=== PATIENT | female | born 1960 | race Caucasian/White ===

== ENCOUNTER 2020-06-09 08:34 | Outpatient (CLI) | payer OTHER, SELFPAY ==
--- NOTE | 2020-06-09 15:46 | WPDPFTINT ---
PFT Interpretation PFT Interpretation: DOS: 06/09/2020 REQUESTING: Yolette Knight NP REASON FOR TESTING: COPD PULMONARY FUNCTION TESTS Results are reproducible and reliable. Spirometry: FEV1 101%, FVC 98%, FEV1% 75%, all values are normal. No change with bronchodilator. Lung volumes: TLC 107%, normal. RV 119%, upper limit of normal. RV/TLC increased consistent with air trapping. Increased airway resistance. Diffusion: DLCO 88% normal. Flow volume loop: Normal. IMPRESSION: Normal spirometry, mild air trapping and increased airway resistance consistent with an obstructive process, no response to bronchodilator. Compared to a prior study 04/13/2017, she had a severely increased TLC consistent with hyperinflation and severe air trapping, now better. Otherwise the findings were similar. Chari Lara MD
== END 2020-06-09 08:35 | disposition home or self-care (01) ==
PROVIDERS: PCP Nurse Practitioner Family; Visit Provider Nurse Practitioner Family
DX: J44.9 Chronic obstructive pulmonary disease, unspecified (principal)
CPT/HCPCS: 94060; 94726; 94729

== ENCOUNTER 2020-08-07 11:16 | Outpatient (CLI) | payer OTHER, SELFPAY ==
--- NOTE | ~2020-08-07 | XR_ITS ---
EXAMINATION: XR chest 2V DATE: 08/07/2020 11:42 INDICATION: Chronic obstructive pulmonary disease. Right arm pain. TECHNIQUE: Frontal and lateral views of the chest were obtained. COMPARISON: None. FINDINGS: The chest demonstrates clear lungs without pneumonia, pleural effusion, or pneumothorax. Th e heart size is normal. Surgical clips in the right upper quadrant are likely from cholecystectomy. IMPRESSION: 1. No acute cardiopulmonary disease. Reviewed, dictated and finalized at location A.
== END 2020-08-07 11:17 | disposition home or self-care (01) ==
PROVIDERS: PCP Nurse Practitioner Family; Visit Provider Nurse Practitioner Family
DX: J44.9 Chronic obstructive pulmonary disease, unspecified (principal)
CPT/HCPCS: 71046

== ENCOUNTER 2020-10-25 08:21 | Outpatient (CLI) | payer OTHER, SELFPAY ==
--- NOTE | 2020-10-25 | ECHO_ITS ---
Patient Info Name: Brenda Brower Age: 60 years : 1960 Gender: Female Ht: 60 in Wt: 138 lbs BSA: 1.65 m2 HR: 75 bpm BP: 138 / 81 mmHg Heart Rhythm: Sinus Rhythm Technical Quality: Good Exam Date: 10/25/2020 8:57 AM Exam Location: [facility] Patient Status: Outpatient Admit Date: 10/25/2020 Staff Ordering Physician: JULIANNE CONRAD MD Brush Trimming Machine Setter: Leonel Babb RDCS Attending Provider: JULIANNE CONRAD MD Referring Physician: ANAMARIA MORALES; Exam Type: CA echo doppler color flow Study Info Indications I27.2 - Other secondary pulmonary hypertension Complete two-dimensional, color flow and Doppler transthoracic echocardiogram is performed. Strain analysis performed. History/Risk Factors COPD, HTN, pulmonary hypertension. Summary 1. Complete two-dimensional, color flow and Doppler transthoracic echocardiogram is performed. 2. Strain analysis performed. 3. Global longitudinal strain is borderline at -17 %. 4. Left ventricular chamber dimension is normal. 5. Left ventricular systolic function is normal, estimated at 65-70%. 6. There is no increased left ventricular wall thickness. 7. Left ventricular septal wall motion is normal. 8. The left ventricular diastolic function is grade I diastolic dysfunction. 9. Left atrial chamber dimension is mildly enlarged. 10. There is mild mitral valve regurgitation. 11. There is mild tricuspid valve regurgitation. Left Ventricle Global longitudinal strain is borderline at -17 %. Left ventricular chamber dimension is normal. Left ventricular systolic function is normal, estimated at 65-70%. There is no increased left ventricular wall thickness. Left ventricular septal wall motion is normal. The left ventricular diastolic function is grade I diastolic dysfunction. Right Ventricle Right ventricular chamber dimension is normal. Right ventricular systolic function is normal. Left Atria Left atrial chamber dimension is mildly enlarged. Right Atria Right atrial chamber dimension is normal. Atrial Septum Intact interatrial septum visualized by color flow imaging. Aortic Valve The aortic valve is trileaflet. There is mild aortic valve sclerosis. There is no aortic valve stenosis. There is trace aortic valve regurgitation. Pulmonic Valve The pulmonic valve is normal. There is no pulmonic valve stenosis. There is trace pulmonic regurgitation. Mitral Valve The mitral valve has normal leaflets. There is no mitral valve stenosis. There is mild mitral valve regurgitation. Tricuspid Valve The tricuspid valve leaflets are normal. There is no significant tricuspid valve stenosis. There is mild tricuspid valve regurgitation. No pulmonary hypertension, estimated pulmonary arterial systolic pressure is 31 mmHg. Pericardium/Pleural The pericardium appears normal. There is no pericardial effusion. Inferior Vena Cava Normal inferior vena cava with >50% collapse upon inspiration consistent with normal right atrial pressure, 5 mmHg. Aorta The aortic root size at the sinus of Valsalva is normal. The prox ascending aorta size is normal. Left Ventricular Outflow Tract Name Value Normal LVOT 2D LVOT Diameter
== END 2020-10-25 08:22 | disposition home or self-care (01) ==
PROVIDERS: PCP Nurse Practitioner Family
DX: I27.20 Pulmonary hypertension, unspecified (principal)
CPT/HCPCS: 93306

== ENCOUNTER 2020-11-04 06:39 | Outpatient (CLI) | payer OTHER, SELFPAY ==
--- NOTE | ~2020-11-04 | MR_ITS ---
EXAMINATION: MR shoulder RT wo con DATE: 11/04/2020 07:43 INDICATION: Tendinitis of right shoulder. TECHNIQUE: Magnetic resonance imaging (MRI) of the right shoulder was performed without intravenous c ontrast. Sequences included axial PD-weighted FS FSE, coronal oblique PD-weighted FS FSE and T2-weigh gabriela FS FSE, and sagittal oblique T2-weighted FS FSE and T1-weighted FSE. COMPARISON: Right shoulder MRI 02/18/2007 FINDINGS: Coracoacromial arch: The acromion undersurface is flat in morphology (type I). There are changes of distal clavicle resect ion. There is mild subacromial/subdeltoid bursitis. Rotator cuff: There is a bursal-sided partial-thickness tear of supraspinatus and anterior infraspinatus tendons me asuring 1.9 cm anterior to posterior by 5 mm proximal to distal by up to 70% tendon thickness. Teres minor tendon is normal. There is severe subscapularis tendinopathy. There is no asymmetric fatty atro phy of the rotator cuff muscle bellies. Biceps tendon and glenoid labrum: Biceps tendon is in bicipital groove. There is severe biceps tendinopathy with longitudinal split tea r. There is a tear of superior labrum from 10:00 to 12:00 (SLAP tear). Fluid: There is no glenohumeral joint effusion. Bones/cartilage: There is cartilage surface irregularity of glenoid. There are tiny osteophytes at the glenohumeral mindi int. IMPRESSION: 1. Severe rotator cuff tendinopathy with bursal-sided partial-thickness tear of supraspinatus and inf raspinatus tendons. 2. Mild glenoid chondrosis. SLAP tear. 3. Severe intra-articular biceps tendinopathy with longitudinal split tear. 4. Mild subacromial/subdeltoid bursitis. Reviewed, dictated and finalized at location A. [employer] PROFESSIONAL SERVICES CONSULTANT IMPRESSION: 1. Severe rotator cuff tendinopathy with bursal-sided partial-thickness tear of supraspinatus and infraspinatus tendons. 2. Mild glenoid chondrosis. SLAP tear. 3. Severe intra-articular biceps tendinopathy with longitudinal split tear. 4. Mild subacromial/subdeltoid bursitis.
== END 2020-11-04 06:40 | disposition home or self-care (01) ==
PROVIDERS: PCP Nurse Practitioner Family; Visit Provider Physician Assistant Surgical
DX: M75.41 Impingement syndrome of right shoulder (principal); M75.51 Bursitis of right shoulder; S43.431A Superior glenoid labrum lesion of right shoulder, initial encounter; X58.XXXA Exposure to other specified factors, initial encounter
CPT/HCPCS: 73221

== ENCOUNTER 2020-12-02 14:06 | Outpatient (CLI) | payer OTHER, SELFPAY ==
--- NOTE | ~2020-12-02 | XR_ITS ---
EXAMINATION: XR chest 2V 12/02/2020 14:20 INDICATION: Rib pain and pleurodynia PROCEDURE: PA and lateral views of the chest COMPARISON: 08/07/2020 FINDINGS: The lungs are clear. The cardiomediastinal silhouette is within normal limits. There are no pleural effusions. There is no pneumothorax suspected. Prominent bilateral nipple shadows. IMPRESSION: 1: NO ACUTE CARDIOPULMONARY DISEASE. Reviewed, dictated and finalized at location B. OR BUSINESS MANAGER
== END 2020-12-02 14:07 | disposition home or self-care (01) ==
PROVIDERS: PCP Nurse Practitioner Family; Visit Provider Nurse Practitioner Family
DX: R07.1 Chest pain on breathing (principal)
CPT/HCPCS: 71046

== ENCOUNTER 2021-04-20 16:11 | Outpatient (CLI) | payer OTHER, SELFPAY ==
--- NOTE | ~2021-04-20 | XR_ITS ---
EXAMINATION: XR foot RT min 3V DATE: 04/20/2021 16:29 INDICATION: Dorsal right foot pain post injury one half and 2 weeks prior. TECHNIQUE: Dorsoplantar, two oblique and lateral views of the right foot were obtained. COMPARISON: None. FINDINGS: Subtle sclerosis is seen along a likely subacute nondisplaced fracture across the neck of the right f ourth metatarsal. Bone alignment remains essentially anatomic. No other fractures identified. Mild po lyarticular osteoarthritis at the first metatarsophalangeal and several tarsal metatarsal and interph alangeal joints. Small Achilles and plantar calcaneal spurs. Mild soft tissue swelling at the dorsum of the forefoot. IMPRESSION: 1. Nondisplaced likely subacute fracture at the distal neck of the right fourth metatarsal. Reviewed, dictated and finalized at location A.
== END 2021-04-20 16:12 | disposition home or self-care (01) ==
LOC: ANHIMG 16:15
PROVIDERS: PCP Nurse Practitioner Family; Visit Provider Nurse Practitioner Family
DX: M79.671 Pain in right foot (principal); S92.344A Nondisplaced fracture of fourth metatarsal bone, right foot, initial encounter for closed fracture
CPT/HCPCS: 73630

== ENCOUNTER 2021-04-30 10:39 | Outpatient (CLI) | payer OTHER, SELFPAY ==
--- NOTE | ~2021-04-30 | MM_ITS ---
EXAMINATION: MM screening pati BI w gilda HISTORY: Screening mammogram, family history of breast cancer in her mother. TECHNIQUE: Craniocaudal and mediolateral oblique 3-D tomosynthesis images were obtained and synthetic 2-D images were generated. CAD analysis was submitted and interpreted. COMPARISON: No prior mammogram is available for comparison at this institution. BREAST PARENCHYMAL COMPOSITION: There are scattered areas of fibroglandular density. FINDINGS: Scattered benign-appearing calcifications are present. There is no evidence of suspicious m ass, calcification, or architectural distortion to suggest malignancy in either breast. IMPRESSION: 1. No mammographic evidence of malignancy. 2. Recommend routine screening mammography in one year. BI-RADS Category 2: Benign finding(s). Reviewed, dictated and finalized at location A.
== END 2021-04-30 10:40 | disposition home or self-care (01) ==
LOC: ANHIMG 10:40
PROVIDERS: PCP Nurse Practitioner Family; Visit Provider Nurse Practitioner Family
DX: Z12.31 Encounter for screening mammogram for malignant neoplasm of breast (principal)
CPT/HCPCS: 77063; 77067

== ENCOUNTER 2021-05-09 15:49 | Emergency (ER) | payer OTHER, SELFPAY ==
[2021-05-09] VITALS (26 sets, daily range): BP systolic 119–163; BP diastolic 68–100; PULSE 84–110; RESP 12–28; TEMP 36.6; O2SAT 94–100
--- NOTE | ~2021-05-09 | XR_ITS ---
XR chest 2V DATE: 05/09/2021 16:18 INDICATION: Shortness of breath. Dizziness. Hypertension. COPD. TECHNIQUE: PA and lateral views COMPARISON: 12/02/2020 2 view chest FINDINGS: Normal heart size. There is minimal aortic tortuosity. No hilar or mediastinal enlargemen t. No pulmonary infiltrate or consolidation, pulmonary vascular congestion or pleural effusion or pn eumothorax is detected. Surgical clips, right upper quadrant, consistent with cholecystectomy. Osteopenia. Degenerative spurring of the thoracic spine. IMPRESSION: No active cardiopulmonary disease Reviewed, dictated and finalized at location A.
--- NOTE | 2021-05-09 16:05 | ECG_ITS ---
Measurements Intervals [place] Rate: 98 P: -15 RI: 142 QRS: 56 QRSD: 81 T: 59 QT: 342 QTc: 438 Interpretive Statements SINUS RHYTHM WITH MARKED SINUS ARRHYTHMIA MINIMAL Q WAVES- INFERIOR LEADS BASELINE ARTIFACT- V3 BORDERLINE ECG Electronically Signed On 05-09-2021 16:58:34 CDT by Luisito Joiner D.O.
[2021-05-09 16:20] LABS: Basophils Absolute Auto 0.1 K/mm3 (0.0-0.1); Basophils Percent Auto 0.5 % (0.2-1.2); Eosinophils Absolute Auto 0.3 K/mm3 (0-0.3); Eosinophils Percent Auto 2.3 % (0-4.4); Hematocrit 45.7 % (37.0-47.0); Hemoglobin 15.1 g/dL (12.0-15.0); Immature Granulocyte Absolute 0.05 K/mm3 (0.00-0.031); Immature Granulocyte Percent A 0.4 % (0-0.5); Lymphocytes Absolute Auto 2.73 K/mm3 (0.9-3.2); Mean Corpuscular Hemoglobin 31.5 pg (26-34); Mean Corpuscular Volume 95.2 fl (80-100); Mean Platelet Volume 10.3 fl (7.4-10.4); Monocytes Absolute Auto 0.9 K/mm3 (0.1-0.6); Neutrophils Absolute Auto 7.4 K/mm3 (1.3-6.7); Neutrophils Percent Auto 64.8 % (45.5-73.1); Platelet Count Result 360 k/mm3 (150-375); Red Cell Distribution Width 14.3 % (11.5-14.5); White Blood Count 11.4 K/mm3 (4.5-10.0)
[2021-05-09 17:04] LABS: Anion Gap 8 mmol/L (8-16); Blood Urea Nitrogen 21 mg/dL (7-17); Calcium 9.8 mg/dL (8.4-10.2); Carbon Dioxide 28 mmol/L (22-30); Chloride 101 mmol/L (98-107); Estimated CRCL calculation 53 ml/min; Estimated Glomerular Filt Rate > 60; Glucose 84 mg/dL (65-110); Potassium 3.1 mmol/L (3.4-5.0); Sodium 137 mmol/L (137-145)
--- NOTE | 2021-05-09 17:09 | ED.GENADULT ---
HPI - General Adult General Chief complaint: Recheck/Abnormal Lab/Rx Stated complaint: high blood pressure Time Seen by Provider: 05/09/21 16:20 Source: patient History of Present Illness HPI narrative: Patient is a 60 y/o female complaining of high blood pressure for last 2 weeks. She states that she was in her doctor's office 2 weeks ago and was told that her BP was high. However, no adjustment of her medication was made. She has been compliant with her antihypertensive medication HCTZ. She has some headache and feeling flushed. She has no chest pain or SOB. Related Data Allergies Allergy/AdvReac Type Severity Reaction Status Date / Time Cephalosporins Allergy Severe Verified 09/02/19 13:18 Quinolones Allergy Severe Verified 09/02/19 13:18 CEPHALEXIN (Generic Allergy) Allergy Severe Y Uncoded 09/02/19 13:18 AVALOX Allergy Mild TACHYCARDIA Uncoded 09/02/19 13:18 Review of Systems Constitutional: Constitutional: Denies chills, Denies fever(s), Reports headache(s) and Denies weakness Eyes: Eyes: Denies blurry vision ENT: Reports headache(s) and Denies neck pain Cardiovascular: Cardiovascular: Denies chest pain and Denies dyspnea Respiratory: Respiratory: Denies cough and Denies dyspnea Gastrointestinal: Gastrointestinal: Denies abdominal pain, Denies diarrhea, Denies nausea and Denies vomiting Genitourinary: Genitourinary: Denies hematuria and Denies dysuria Musculoskeletal: Musculoskeletal: Denies back pain and Denies neck pain Neurologic: Reports headache(s) and Denies weakness PMFSH Family History Family History Mother Hypertension Father Cerebrovascular accident Social History Social History Smoking status: Current every day smoker Alcohol intake: current Exam Const: General: no acute distress and well developed Orientation/consciousness: oriented to person, oriented to place, oriented to time and patient oriented x3 HENMT: Head: normocephalic Ears: external ears normal General nose exam: Normal external nose present Eyes: General: appearance normal, both eyes and all related structures Conjunctivae: conjunctivae normal Neck: Neck: normal visual inspection and full ROM Chest: Chest palpation & inspection: normal inspection of the chest and no tenderness Resp: Effort & Inspection: normal respiratory effort Auscultation: clear to auscultation bilaterally Cardio: Rate: regular rate Rhythm: regular rhythm GI: GI Palp: No abdominal tenderness and Yes Soft to palpation Skin: General skin exam: normal color and turgor normal Neuro: General: oriented to person, oriented to place, oriented to time and patient oriented x3 Cognition (Neuro): normal cognition Extrem: General: normal to inspection, full ROM and no pedal edema Psych: Appearance: grossly normal Mental Status: mental status grossly normal Affect: normal affect Course Vital Signs Vital signs: Vital Signs Temperature 36.6 C 05/09/21 16:03 Pulse Rate 110 H 05/09/21 16:03 Respiratory Rate 18 05/09/21 16:03 Blood Pressure 150/94 H 05/09/21 16:03 Pulse Oximetry 100 05/09/21 16:03 Temperature 36.6 C 05/09/21 16:03 Pulse Rate 84 05/09/21 21:12 Respiratory Rate 14 05/09/21 21:12 Blood Pressure 119/74 05/09/21 21:12 Pulse Oximetry 98 05/09/21 21:12 Medical Decision Making Vital Signs Vital Signs: Vital Signs Temperature 36.6 C 05/09/21 16:03 Pulse Rate 110 H 05/09/21 16:03 Respiratory Rate 18 05/09/21 16:03 Blood Pressure 150/94 H 05/09/21 16:03 Pulse Oximetry 100 05/09/21 16:03 Temperature 36.6 C 05/09/21 16:03 Pulse Rate 84 05/09/21 21:12 Respiratory Rate 14 05/09/21 21:12 Blood Pressure 119/74 05/09/21 21:12 Pulse Oximetry 98 05/09/21 21:12 Lab Data Result diagrams: 05/09/21 16:11 05/09/21 16:38 Labs: Lab Results
[2021-05-09] MEDS: lisinopriL 20 MG TABLET PO (17:40)
[2021-05-09] MEDS: ACETAMINOPHEN 325 MG TABLET 650 MG PO (17:41)
[2021-05-09 17:43] LABS: D Dimer 0.33 ug/mL (<0.48)
[2021-05-09 17:49] LABS: NT Pro B Type Natriuretic Pept 50 pg/mL (5-100)
[2021-05-09 18:23] LABS: Troponin I < 0.012 ng/mL (0.000-0.034)
[2021-05-09 20:18] LABS: Troponin I < 0.012 ng/mL (0.000-0.034)
[2021-05-09] MEDS: POTASSIUM CHLORIDE 20 MEQ TABLET PO (20:41)
== END 2021-05-09 21:06 | disposition home or self-care (01) ==
PROVIDERS: Emergency Provider Emergency Medicine; PCP Nurse Practitioner Family
DX: I10 Essential (primary) hypertension (principal); F17.200 Nicotine dependence, unspecified, uncomplicated
CPT/HCPCS: 36415; 71046; 80048; 83880; 84484; 85025; 85380; 93005; 99284; A9270

== ENCOUNTER 2021-08-01 16:03 | Outpatient (CLI) | payer OTHER, SELFPAY ==
--- NOTE | ~2021-08-01 | XR_ITS ---
XR wrist RT min 3V DATE: 08/01/2021 16:38 INDICATION: Bilateral wrist and hand pain TECHNIQUE: 4 views COMPARISON: None FINDINGS: No fracture or dislocation, periosteal reaction or bone destruction. No erosive change or c hondrocalcinosis. IMPRESSION: No significant abnormality Reviewed, dictated and finalized at location B. IMPRESSION: No significant abnormality
--- NOTE | ~2021-08-01 | XR_ITS ---
XR hand RT min 3V DATE: 08/01/2021 16:37 INDICATION: Bilateral wrist and hand pain TECHNIQUE: 4 views COMPARISON: None FINDINGS: There is prominent osteoarthritic change including joint space. Spurring at the distal inte rphalangeal joint of the deep second digit, with lesser osteoarthritic change at the remaining distal interphalangeal joints. No fracture or dislocation, periosteal reaction or bone destruction, erosive change or chondrocalcino sis is detected. IMPRESSION: Osteoarthritis involving primarily the distal interphalangeal joints, especially the seco nd Reviewed, dictated and finalized at location B. IMPRESSION: Osteoarthritis involving primarily the distal interphalangeal joint s, especially the second
--- NOTE | ~2021-08-01 | XR_ITS ---
XR wrist LT min 3V DATE: 08/01/2021 16:37 INDICATION: Bilateral wrist and hand pain TECHNIQUE: 4 views COMPARISON: None FINDINGS: No fracture or dislocation, periosteal reaction or bone destruction. There is mild osteoarthritic change at the triscaphe and first carpometacarpal joints. No erosive [place] nge or chondrocalcinosis. IMPRESSION: Mild osteoarthritis Reviewed, dictated and finalized at location B. IMPRESSION: Mild osteoarthritis
--- NOTE | ~2021-08-01 | XR_ITS ---
XR hand LT min 3V DATE: 08/01/2021 16:36 INDICATION: Bilateral wrist and hand pain TECHNIQUE: 3 views COMPARISON: None FINDINGS: There is mild osteoarthritic change at the triscaphe and first carpometacarpal joints and o steoarthritis of multiple interphalangeal joints, most pronounced at the distal interphalangeal joint s of the second and third digits. No erosive change. No fracture or dislocation, periosteal reaction or bone destruction. IMPRESSION: Polyarticular osteoarthritis Reviewed, dictated and finalized at location B.
== END 2021-08-01 16:04 | disposition home or self-care (01) ==
LOC: ANHIMG 16:07
PROVIDERS: PCP Nurse Practitioner Family; Visit Provider Nurse Practitioner Family
DX: M25.532 Pain in left wrist (principal); M19.042 Primary osteoarthritis, left hand; M19.041 Primary osteoarthritis, right hand
CPT/HCPCS: 73110; 73130

== ENCOUNTER 2021-09-19 17:03 | Outpatient (CLI) | payer OTHER, SELFPAY ==
--- NOTE | ~2021-09-19 | MR_ITS ---
EXAMINATION: MR shoulder RT wo con DATE: 09/19/2021 17:43 INDICATION: Right rotator cuff tear with one year of diffuse right shoulder pain with limited range o f motion TECHNIQUE: Magnetic resonance imaging (MRI) of the right shoulder was performed without intravenous c ontrast. Sequences included axial PD-weighted FS FSE, coronal oblique PD-weighted FS FSE, coronal obl ique T2-weighted FS FSE, sagittal PD-weighted FS FSE, and sagittal T1-weighted SE. COMPARISON: 11/04/2020 FINDINGS: Coracoacromial arch: The acromion undersurface is flat in morphology (type I) with change of prior acromioplasty. Small an terior subacromial spur at the acromial insertion of the otherwise normal coracoacromial ligament. Di stal right clavicle resection. Rotator cuff: Mild supraspinatus and infraspinatus tendinopathy. Articular sided tear extending across the footplat e of the supraspinatus tendon and into the conjoined portion of the supraspinatus and infraspinatus t endons. The tear measures approximately 1.3 cm AP. There is a full-thickness component to the tear at the central footplate of the supraspinatus tendon which measures 4 mm AP.. There is 1.5 cm medial re traction of the torn articular side of the tendon with the tear margin lying along the thickened rota tor cable. The teres minor tendon is normal. Moderate subscapularis tendinopathy without discrete tea r. No asymmetric muscular atrophy of the rotator cuff or shoulder girdle. Biceps tendon, glenoid labrum and glenohumeral cartilage: The long head biceps tendon remains normally located in the intertubercular groove. Moderate tendinop athy and longitudinal split tearing of the intra-articular long head biceps tendon. No interval valdes e in a SLAP tear at the 10:00 to 12:00 position of the superior labrum. Mild partial-thickness cartil age loss with smooth chondral surface at the apex and posterosuperior aspect of the humeral head. Fluid: Small amount of fluid in the long head biceps tendon sheath disproportionate to the physiologic amoun t fluid in the glenohumeral joint consistent with mild bicipital tenosynovitis. Small amount of fluid in the subacromial/subdeltoid bursa likely representing decompressed fluid from the glenohumeral michelle nt is communicating through the full-thickness rotator cuff tear. No loose osteochondral bodies. Bones: Normal marrow signal with no edema, fracture or pathologic marrow replacing process. Multiple small f oci of susceptibility artifact in the subcutaneous tissues overlying the deltoid consistent with hist ory of prior right shoulder surgery. IMPRESSION: 1. Moderate rotator cuff tendinopathy with moderate sized articular sided tear along the footplate of the supraspinatus and conjoined portion of the supraspinatus and infraspinatus tendons with small fu ll-thickness component at the insertion of the central supraspinatus tendon. 2. Mild glenohumeral osteoarthritis with unchanged small SLAP tear at the posterosuperior glenoid lab rum. 3. Mild bicipital tenosynovitis with unchanged moderate tendinopathy and longitudinal split tearing o f the intra-articular long head biceps tendon. 4. Status post acromioplasty and distal clavicle resection. Reviewed, dictated and finalized at location A. R TRIMMER IMPRESSION: 1. Moderate rotator cuff tendinopathy with moderate sized articular sided tear along the footplate of the supraspinatus and conjoined portion of the supraspin atus and infraspinatus tendons with small full-thickness component at the inser tion of the central supraspinatus tendon. 2. Mild glenohumeral osteoarthritis with unchanged small SLAP tear at the poste rosuperior glenoid labrum. 3. Mild bicipital tenosynovitis with unchanged moderate tendinopathy and longit udinal split tearing
== END 2021-09-19 17:04 | disposition home or self-care (01) ==
LOC: ANHIMG 17:09
PROVIDERS: PCP Nurse Practitioner Family; Visit Provider Orthopaedic Surgery
DX: M75.101 Unspecified rotator cuff tear or rupture of right shoulder, not specified as traumatic (principal); S43.431A Superior glenoid labrum lesion of right shoulder, initial encounter; M19.011 Primary osteoarthritis, right shoulder; M75.21 Bicipital tendinitis, right shoulder; Z98.890 Other specified postprocedural states
CPT/HCPCS: 73221

== ENCOUNTER 2021-12-16 10:53 | Emergency (ER) | payer OTHER, SELFPAY ==
[2021-12-16 10:57] VITALS: BP 140/73; PULSE 82; RESP 16; TEMP 36.9; O2SAT 100
--- NOTE | 2021-12-16 11:05 | ED.BACK ---
HPI - Back Pain/Injury General Chief Complaint: Back Pain/Injury Stated Complaint: back pain Time Seen by Provider: 12/16/21 10:56 History of Present Illness HPI Narrative: 61-year-old female with chronic history of back pain presents the emergency room with acute onset of right lower back pain. Patient states that she was getting dressed this morning and when she bent over to pull her pants up she felt a pulling sensation. States the pain is radiating down right leg. States that back pain normally has radicular pain into the right leg. States has been taking Tylenol with no relief. Denies saddle anesthesia denies difficulty with voiding and bowel movements. Related Data Allergies Allergy/AdvReac Type Severity Reaction Status Date / Time Cephalosporins Allergy Severe Verified 09/02/19 13:18 Quinolones Allergy Severe Verified 09/02/19 13:18 CEPHALEXIN (Generic Allergy) Allergy Severe Y Uncoded 09/02/19 13:18 AVALOX Allergy Mild TACHYCARDIA Uncoded 09/02/19 13:18 Review of Systems Review of Systems: CONSTITUTIONAL: Denies fever, chills, or sweats. EYES: Denies visual changes, redness, or discharge. ENT: Denies rhinorrhea, congestion, sore throat, or otalgia. CARDIOVASCULAR: Denies chest pain, palpitations, or edema. RESPIRATORY: Denies cough or dyspnea. GASTROINTESTINAL: Denies abdominal pain, nausea, vomiting, or diarrhea. GENITOURINARY: Denies dysuria or hematuria. SKIN: Denies rash or itching. MUSCULOSKELETAL: Reports lumbar back pain, denies joint pain, or myalgia. NEUROLOGIC: Denies headache, numbness, dizziness, or weakness. Reports radicular pain down right leg PSYCHIATRIC: Denies anxiety or depression. [facility] Family History Family History Mother Hypertension Father Cerebrovascular accident Social History Social History Smoking status: Current every day smoker Alcohol intake: current Exam Narrative: GENERAL: Well-appearing, well-nourished, and in no acute distress. HEAD: Normocephalic, atraumatic. EYES: PERRLA and EOMI. ENT: Nares clear, no rhinorrhea or epistaxis. Mucous membranes moist. NECK: Supple. No adenopathy or masses. No carotid bruits or JVD BACK: No midline lumbar tenderness, no step-offs. Tenderness to right lateral thoracolumbar region CHEST: Clear to auscultation. No respiratory distress. No wheezes rales or rhonchi HEART: Regular rate and rhythm. No murmur heard. Normal peripheral pulses. ABDOMEN: Soft, nontender, nondistended, normal active bowel sounds. EXTREMITIES: Normal range of motion. No edema. SKIN: Warm, dry, no rash. NEURO: No focal deficits. Alert and oriented x3. PSYCH: Normal mood and affect. Course Vital Signs Vital signs: Vital Signs Temperature 36.9 C 12/16/21 10:57 Pulse Rate 82 12/16/21 10:57 Respiratory Rate 16 12/16/21 10:57 Blood Pressure 140/73 12/16/21 10:57 Pulse Oximetry 100 12/16/21 10:57 Temperature 36.9 C 12/16/21 10:57 Pulse Rate 82 12/16/21 10:57 Respiratory Rate 16 12/16/21 10:57 Blood Pressure 140/73 12/16/21 10:57 Pulse Oximetry 100 12/16/21 10:57 Discharge Plan Discharge Clinical Impression: Strain of lumbar region Patient Disposition: Home, Self-Care Condition: Stable Instructions: Antibiotic Form Prescriptions: New methocarbamol 500 mg tablet 500 mg PO TID Qty: 15 RF: 0 No Action lisinopril 10 mg tablet 10 mg PO DAILY Qty: 30 RF: 0 Follow-up/Referrals: Knight,Yolette Diaz APN [Primary Care Provider] - Time of Disposition: 11:20
[2021-12-16] MEDS: methocarbamoL 500 MG TABLET PO (11:09)
[2021-12-16] MEDS: KETOROLAC (*BKC) 60 MG/2 ML VIAL IM (11:10)
== END 2021-12-16 11:36 | disposition home or self-care (01) ==
LOC: ANHED 11:26
PROVIDERS: Emergency Provider Nurse Practitioner Family; PCP Nurse Practitioner Family
DX: S39.012A Strain of muscle, fascia and tendon of lower back, initial encounter (principal); F17.200 Nicotine dependence, unspecified, uncomplicated; X50.9XXA Other and unspecified overexertion or strenuous movements or postures, initial encounter
CPT/HCPCS: 96372; 99283; A9270; J1885

== ENCOUNTER 2021-12-29 14:19 | Outpatient (CLI) | payer OTHER, SELFPAY | END 2021-12-29 14:20 | disposition home or self-care (01) | LOC: ANHAUDIO 14:21 | PROVIDERS: PCP Nurse Practitioner Family; Visit Provider Nurse Practitioner Family | DX: H91.93 Unspecified hearing loss, bilateral (principal) | CPT/HCPCS: 92557; 92567 ==

== ENCOUNTER 2022-02-01 15:43 | Outpatient (RCR) | payer OTHER, SELFPAY ==
--- NOTE | 2022-02-01 16:47 | OTOPEVAL ---
OCCUPATIONAL THERAPY EVALUATION REPORT AND DISCHARGE SUMMARY 02/01/22 Patient referred to outpatient hand therapy with dx of cubital tunnel syndrome. She reports the symptoms have been going on for at least 10 years. [place] Mario monofilament testing today was normal, however she reports symptoms of paresthesias in bilateral hands, ulnar two digits. Discussed at length her diagnosis, positioning, and prognosis. She verbalized excellent understanding. Plan to have the patient continue to manage her symptoms independently through positioning, body awareness, and improved body mechanics with repetitive tasks. Discharging today with patient independent with all materials. Thank you for referring Brenda Brower to [facility].? Please review, sign, date and return this D/C Summary BRITTON. I agree with and certify that the following plan of care is medically necessary. Referring Physician Date Referring Provider: Fercho Mayo MD *OT Outpatient Evaluation Start: 02/01/22 15:51 Freq: Status: Active Protocol: Document 02/01/22 15:56 LISETH (Rec: 02/01/22 16:46 LISETH [email or web address]) Therapy Assessment Status Assessment Status Assessment Status Evaluation Outpatient Past Medical History Past Medical History Source of Past Medical History Patient Neurological History Hx Neurological Disorders No Significant History Cardiovascular History Hx Hypertension Yes Respiratory History Hx Chronic Obstructive Pulmonary Disease Yes (COPD) Musculoskeletal History Hx Fractures Yes: Right wrist x20 years ago Hx Other Musculoskeletal Disorders Yes: Bilat carpal tunnel release Reproductive History Hx Post Menopausal Yes Evaluation Information Problem Diagnosis Cubital tunnel syndrome Subjective Information Patient reports symptoms of Query Text:As Reported By Patient/ cubital tunnel syndrome for Family the last 10 years. She states she has constant numbness in the right hand's ulnar two digits. She states she has intermittent numbness in the left hand's ulnar two digits. 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 Reports that her wrists hurts when picking up children. History of right wrist fracture in 2011 which she was unable to have surgery on due to not having insurance at the time. Pain Assessment Pain Scale Pain Scale Used Numeric (1 - 10) Self Report Pain Assessment Hand(s) Reported Pain Level 2 Pain Description
== END 2022-02-02 14:29 | disposition home or self-care (01) ==
LOC: ANHOT 15:43
PROVIDERS: PCP Nurse Practitioner Family; Referring Provider Plastic Surgery; Visit Provider Plastic Surgery
DX: G56.03 Carpal tunnel syndrome, bilateral upper limbs (principal)
CPT/HCPCS: 97166

== ENCOUNTER 2023-12-04 08:50 | Outpatient (CLI) | payer OTHER, SELFPAY ==
--- NOTE | 2023-12-04 11:00 | NEURO_ITS ---
Impression: # Complains of left hand numbness. # Left Carpal Tunnel Syndrome. # No ulnar neuropathy. # Normal needle/EMG exam. # Clinical correlation recommended. Nerve Conduction Studies Anti Sensory Summary Table Stim Site NR Peak (ms) P-T Amp (?V) Site1 Site2 Delta-P (ms) Dist (cm) Ben (m/s) Left Median Anti Sensory (2-3nd Digit) Wrist 3.6 31.9 Wrist 2-3nd Digit 3.6 14.0 39 Wrist 3.7 17.1 Wrist 2-3nd Digit 3.6 14.0 39 Right Median Anti Sensory (2-3nd Digit) Wrist 2.9 44.7 Wrist 2-3nd Digit 2.9 14.0 48 Wrist 2.8 55.5 Wrist 2-3nd Digit 2.9 14.0 48 Left Radial Anti Sensory (Base 1st Digit) Wrist 1.7 37.8 Wrist Base 1st Digit 1.7 0.0 Right Radial Anti Sensory (Base 1st Digit) Wrist 2.5 20.8 Wrist Base 1st Digit 2.5 0.0 Left Ulnar Anti Sensory (5th Digit) Wrist 2.6 75.9 Wrist 5th Digit 2.6 14.0 54 Right Ulnar Anti Sensory (5th Digit) Wrist 2.4 58.3 Wrist 5th Digit 2.4 14.0 58 Motor Summary Table Stim Site NR Onset (ms) O-P Amp (mV) Site1 Site2 Delta-0 (ms) Dist (cm) Ben (m/s) Left Median Motor (Abd Poll Brev) Wrist 4.2 1.5 Elbow Wrist 4.4 25.0 57 Elbow 8.6 2.1 Right Median Motor (Abd Poll Brev) Wrist 2.7 9.4 Elbow Wrist 5.1 26.0 51 Elbow 7.8 8.1 Left Ulnar Motor (Abd Dig Minimi) Wrist 2.7 6.5 A Elbow Wrist 4.7 26.0 55 A Elbow 7.4 4.5 Right Ulnar Motor (Abd Dig Minimi) Wrist 2.3 8.8 A Elbow Wrist 4.6 24.0 52 A Elbow 6.9 7.1 F Wave Studies NR F-Lat (ms) L-R F-Lat (ms) Left Median (Mrkrs) (Abd Poll Brev) 26.13 0.58 Right Median (Mrkrs) (Abd Poll Brev) 26.72 0.58 Left Ulnar (Mrkrs) (Abd Dig Min) 26.25 0.07 Right Ulnar (Mrkrs) (Abd Dig Min) 26.18 0.07 EMG Side Muscle Nerve Root Ins Act Fibs Amp Dur Recrt Comment Right 1stDorInt Ulnar C8-T1 Nml Nml Nml Nml Nml Right Ext Indicis Radial (Post Int) C7-8 Nml Nml Nml Nml Nml Right Ext Digitorum Radial (Post Int) C7-8 Nml Nml Nml Nml Nml Right BrachioRad Radial C5-6 Nml Nml Nml Nml Nml Right PronatorTeres Median C6-7 Nml Nml Nml Nml Nml Right Abd Poll Brev Median C8-T1 Nml Nml Nml Nml Nml Left 1stDorInt Ulnar C8-T1 Nml Nml Nml Nml Nml Left Ext Indicis Radial (Post Int) C7-8 Nml Nml Nml Nml Nml Left Ext Digitorum Radial (Post Int) C7-8 Nml Nml Nml Nml Nml Left BrachioRad Radial C5-6 Nml Nml Nml Nml Nml Left PronatorTeres Median C6-7 Nml Nml Nml Nml Nml Left Abd Poll Brev Median C8-T1 Nml Nml Nml Nml Nml Right ABD Dig Min Ulnar C8-T1 Nml Nml Nml Nml Nml Left ABD Dig Min Ulnar C8-T1 Nml Nml Nml Nml Nml MTDD
== END 2023-12-04 08:51 | disposition home or self-care (01) ==
LOC: ANHNEURO 08:52
PROVIDERS: PCP Nurse Practitioner Family; Visit Provider Nurse Practitioner Family
DX: M79.641 Pain in right hand (principal); G56.02 Carpal tunnel syndrome, left upper limb
CPT/HCPCS: 95886; 95911

== ENCOUNTER 2024-04-09 08:56 | Emergency (ER) | payer OTHER, SELFPAY ==
--- NOTE | ~2024-04-09 | XR_ITS ---
EXAMINATION: XR thoracic spine 3V DATE: 04/09/2024 10:18 INDICATION: Back pain. Fall. TECHNIQUE: 3 views of thoracic spine were obtained. COMPARISON: None. FINDINGS: There is 5 degrees dextrocurvature of thoracic spine. There is mild chronic anterior wedgin g of multiple vertebral bodies. There is mildly decreased disc height at multiple levels. There is mo derately decreased disc height at T7-T8 and T10-T11. There are endplate osteophytes at most levels. S urgical clips in the right upper quadrant are likely from cholecystectomy. Calcified left lung nodule s and calcified left hilar and mediastinal lymph nodes are consistent with old granulomatous disease. IMPRESSION: 1. Moderate thoracic spondylosis. Reviewed, dictated and finalized at location A.
--- NOTE | ~2024-04-09 | XR_ITS ---
EXAMINATION: XR lumbar spine 2-3V DATE: 04/09/2024 10:18 INDICATION: Back pain. Fall. TECHNIQUE: 3 views of lumbar spine were obtained. COMPARISON: None. FINDINGS: There is 7 degrees levocurvature of lumbar spine. There is mild chronic anterior wedging of the T12 and L1 vertebral bodies. There is mildly decreased disc height at L1-L2 and L2-L3. There is multilevel mild facet joint osteoarthritis. Surgical clips in the right upper quadrant are likely fro m cholecystectomy. IMPRESSION: 1. Mild lumbar spondylosis. Reviewed, dictated and finalized at location A. IMPRESSION: 1. Mild lumbar spondylosis.
[2024-04-09 09:00] VITALS: BP 140/72; PULSE 76; RESP 15; TEMP 36.4; O2SAT 100
[2024-04-09 09:57] VITALS: PULSE 71; RESP 15; O2SAT 98
--- NOTE | 2024-04-09 10:10 | ED.BACK ---
HPI - Back Pain/Injury General Chief Complaint: Back Pain/Injury Stated Complaint: back pain Time Seen by Provider: 04/09/24 09:07 History of Present Illness HPI Narrative: 63-year-old female presents to the emergency room for evaluation of back pain that has been present for 2 weeks. Patient states 2 weeks ago she slipped and fell, landing on her left hip. States that when she fell she twisted her back. Reportedly takes naproxen twice daily for chronic back pain. Reports naproxen is mildly alleviating her pain. Back pain is worse home when changing positions. Pain radiates into right glute. Denies saddle anesthesia, denies changes in bowel or bladder habits. Related Data Home Medications Medication Instructions Recorded Confirmed albuterol sulfate 90 mcg/actuation 1 puff inhalation Q4H PRN 03/20/24 03/20/24 aerosol inhaler buspirone 5 mg tablet 5 mg PO TID 03/20/24 03/20/24 naproxen 500 mg tablet 500 mg PO BID 03/20/24 03/20/24 pantoprazole 40 mg tablet,delayed 40 mg PO QAM 03/20/24 03/20/24 release umeclidinium 62.5 mcg/actuation 1 inh inhalation DAILY 03/20/24 03/20/24 blister powder for inhalation (Incruse Ellipta) venlafaxine 225 mg tablet,extended 225 mg PO DAILY 03/20/24 03/20/24 release 24 hr Allergies Allergy/AdvReac Type Severity Reaction Status Date / Time Cephalosporins Allergy Severe Anaphylaxis Verified 04/09/24 09:56 Quinolones Allergy Severe Anaphylaxis Verified 04/09/24 09:56 CEPHALEXIN (Generic Allergy) Allergy Severe Y Uncoded 04/09/24 09:56 AVALOX Allergy Mild TACHYCARDIA Uncoded 04/09/24 09:56 Review of Systems Review of Systems: ROS unremarkable except for noted in HPI PMFSH Past Medical History Medical History Abnormal Pap smear of cervix 2003--endometrial cells Acid reflux Anxiety Arthritis COPD (chronic obstructive pulmonary disease) Depression Emphysema/COPD Hypertension Tubal without intrauterine (~1994) tube removed Surgical History Surgical History History of bilateral breast reduction surgery (~2001) History of breast biopsy (~2006) right breast biopsy--benign History of carpal tunnel surgery (~2002) History of cholecystectomy (~11/02/97) History of dilation and curettage 09/05/05 hscope d&c--irregular vaginal bleeding, benign 03/12/07 hscope d&c--menorrhagia, benign History of tonsillectomy and adenoidectomy (~1964) History of tubal ligation (~1991) S/P excision of lipoma (~05/20/97) Family History Family History Mother Hypertension Father Cerebrovascular accident Social History Social History Smoking packs per day: 1 Smoking cigarettes per day: 20.0 Years smoked: 40 Smoking pack-years: 40.00 Smoking status: Current every day smoker Alcohol intake: current Alcohol use details: rarely Substance use: current Substance use type: marijuana Other substance usage details: smoke at night Do You Feel Safe in your Home?: Yes Lack of Transportation: No Lack of Food: Never True Current Housing: I Have Housing Concerned About Future Housing: No Difficulty Paying Gas/Electric Bills: No Difficulty Paying for Meds: No Currently Unemployed: No Education: High School Diploma/GED Difficulty w/ Childcare or Family Care: No Living arrangements: with family Occupation/Education: occupation 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 HEAD: Normocephalic, atraumatic. EYES: Conjunctivae normal, PERRLA and EOMI. CHEST: Clear to auscultation. No respiratory distress. No wheezes rales or r
[2024-04-09 10:43] VITALS: BP 132/88
== END 2024-04-09 10:44 | disposition home or self-care (01) ==
PROVIDERS: Emergency Provider Nurse Practitioner Family; PCP Nurse Practitioner Family
DX: S29.012A Strain of muscle and tendon of back wall of thorax, initial encounter (principal); S39.012A Strain of muscle, fascia and tendon of lower back, initial encounter; I10 Essential (primary) hypertension; J44.9 Chronic obstructive pulmonary disease, unspecified; J43.9 Emphysema, unspecified; K21.9 Gastro-esophageal reflux disease without esophagitis; M19.90 Unspecified osteoarthritis, unspecified site; F41.9 Anxiety disorder, unspecified; F17.210 Nicotine dependence, cigarettes, uncomplicated; Z90.49 Acquired absence of other specified parts of digestive tract; Z79.899 Other long term (current) drug therapy; W01.0XXA Fall on same level from slipping, tripping and stumbling without subsequent striking against object, initial encounter
CPT/HCPCS: 72072; 72100; 99283

== ENCOUNTER 2025-02-05 10:30 | Outpatient (CLI) | payer OTHER, SELFPAY ==
--- NOTE | 2025-02-05 10:35 | ECG_ITS ---
Test Date: 2025-02-05 10:50:23 Measurements Intervals [place] Rate: 66 P: 72 TX: 139 QRS: 57 QRSD: 94 T: 69 QT: 406 QTc: 426 Interpretive Statements SINUS RHYTHM POSSIBLE LEFT ATRIAL ENLARGEMENT BASELINE ARTIFACT- I, II, AVR BORDERLINE ECG No previous ECG available for comparison Electronically Signed On 02-05-2025 10:56:05 CDT by Luisito Joiner D.O.
--- OUTSIDE RECORDS SUMMARY | 2025-02-05 11:20 | XMS_ITS | Clinical Summary ---
Author Organization [address] Address [address] [place] [id number] Care Team Providers Care Senior Data Scientist Name Role Phone Yolette Knight NP Primary Care Provider [phone] Allergies Active Allergy Reactions Criticality Noted Date Comments Cephalosporins Other (See comments) Low 07/12/2020 Medications umeclidinium (INCRUSE ELLIPTA) 62.5 mcg/actuation blister with deviceIndications: Chronic Obstructive Pulmonary Disease with Bronchospasms 62.5 mcg daily Active hydroCHLOROthiazid e (HYDRODIURIL) 25 mg tabletIndications: hypertension Take 25 mg by mouth daily Active venlafaxine XR (EFFEXOR-XR) 75 mg 24 hr capsuleIndications :major depressive disorder Take 225 mg by mouth daily Active acyclovir (ZOVIRAX) 400 mg tablet Take 400 mg by mouth daily Active naproxen (NAPROSYN) 500 mg tablet Take 500 mg by mouth 2 (two) times a day with meals Active busPIRone (BUSPAR) 5 mg tablet Take 5 mg by mouth 2 (two) times a day Active omeprazole (PriLOSEC) 40 mg capsule Take 1 capsule by mouth once daily 30 capsule 1 Active famotidine (PEPCID) 20 mg tablet Take 1 tablet (20 mg total) by mouth 2 (two) times a day 60 tablet 11 1 Active Active Problems Problem Noted Date Diagnosed Date Nausea 07/12/2020 Assessment & Plan (07/12/2020 11:35 AM CDT): Pt says nausea was not present when she was taking omeprazole. She doesn't feel pantoprazole is working and started to get nausea once she switched. Could be related to her GERD. Stop the pantoprazole and take omeprazole instead. Pt is to take in morning on empty stomach. Periumbilical abdominal pain 07/12/2020 Assessment & Plan (07/12/2020 11:34 AM CDT): Aching that occurs shortly after meals. Pt says it is a mild pain and usually only lasts about 20 minutes. She does not have a gallbladder. Pt did mention she has issues with lots of gas. Advised to try gas-x prn for pain and/or beano prior to meals. BMI 28.0-28.9,adult 07/12/2020 Difficulty in swallowing 04/22/2020 Overview (04/22/2020): Added automatically from request for surgery [id number] Assessment & Plan (07/12/2020 11:36 AM CDT): EGD was overall unremarkable for explanation of dysphagia. She was dilated during the procedure and did not help. She has problems with both liquids and solids. Will get esophagram. Could be related to dysmotility. F/U once this testing is done. 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 Gender Identity Not on file Sexual Orientation Not on file Obstetrics History Last Filed Vital Signs Vital Sign Reading Time Taken Comments Blood Pressure 112/80 07/12/2020 10:48 AM CDT Pulse 70 07/12/2020 10:48 AM CDT Temperature 35.8 C (96.4 F) 07/12/2020 10:48 AM CDT Respiratory Rate 20 07/12/2020 10:48 AM CDT Oxygen Saturation 97% 07/12/2020 10:48 AM CDT Inhaled Oxygen Concentration - - Weight 66.7 kg (147 lb) 07/12/2020 10:48 AM CDT Height 152.4 cm (5') 07/12/2020 10:48 AM CDT Body Mass Index 28.71 07/12/2020 10:48 AM CDT Plan of Treatment Not on file Insurance Advance Directives For more information, please contact: [phone] * Full Code (Latest Code Status on File) Date Activated Date Inactivated Comments 05/10/2020 12:10 PM 05/10/2020 6:32 PM * Full Code Date Activated Date Inactivated Comments 05/10/2020 12:10 PM 05/10/2020 12:10 PM Care Teams Senior Data Scientist Relationship Specialty Start Date End Date Yolette Knight NP [address] [place] [address] PCP - General 05/05/20
--- OUTSIDE RECORDS SUMMARY | 2025-02-05 11:20 | XMS_ITS | Referral Summary ---
Author Organization [address] Address [address] [place] [id number] Care Team Providers Care Epic Prelude Analyst Name Role Phone Yolette Knight NP Primary Care Provider [phone] Allergies Active Allergy Reactions Criticality Noted Date [...] (04/22/2020): Added automatically from request for surgery [id number] Assessment & Plan (07/12/2020 11:36 AM CDT): EGD was overall unremarkable for explanation of dysphagia. She was dilated during the procedure and did not help. She has problems with both liquids and solids. Will get esophagram. Could be related to dysmotility. F/U once this testing is done. 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
--- OUTSIDE RECORDS SUMMARY | 2025-02-05 11:20 | XMS_ITS | Clinical Summary ---
Author Organization [facility] Address [facility] [place] [address] Care Team Providers Care Filter Screen Cleaner Name Role Phone Unavailable Primary Care Provider Unavailabl e Source Comments [facility],non-owned Affiliates and Associated Physician Practices is amultiple site organization consisting of ambulatory clinics and hospital sitesin [place], [place]. This disclosure is being madepursuant to the Care Everywhere program and may not contain all information available regarding this patient. Last updated 18.[facility] Allergies Active Allergy Reactions Criticality Noted Date Comments Cephalosporins 12/18/2016 Guaifenesin 12/18/2016 Medications * Be aware that medications may not be up to date on this document. Alwaysverify current medications with the patient. HYDROCHLOROTHIAZ PEDRO PO Active Venlafaxine HCl (EFFEXOR PO) Active OMEPRAZOLE PO Active OtherIndications :controller inhaler for emphysema Reasons: controller inhaler for emphysema Active azithromycin (ZITHROMAX) 250 MG tabletIndication s:Hospital-Acqui red Pneumonia Take 2 tablets now, then 1 tablet daily for 4 days. Reasons: Pneumonia Acquired From Being Treated in a Hospital 6 tablet 7 Active albuterol HFA (PROVENTIL;GREY DERRICK;PROAIR) 108 (90 BASE) MCG/ACT inhalerIndicatio ns:Chronic Obstructive Pulmonary Disease Inhale 2 puffs by mouth every 4 hours as needed Reasons: Chronic Obstructive Lung Disease 1 Inhaler 7 Active benzonatate (TESSALON) 200 MG capsuleIndicatio ns:COPD exacerbation (HCC) Take 1 capsule by mouth 3 times daily as needed for Cough 30 capsule 7 Active Active Problems No known active problems Social History Tobacco Use Types Packs/Day Years Used Date Smoking Tobacco: Some Days Smokeless Tobacco: Never Comments No Sex and Gender Information Value Date Recorded Sex Assigned at Not on file Legal Sex Female 12:02 PM RESOLUTION EXPERT Gender Identity Not on file Sexual Orientation Not on file Last Filed Vital Signs Vital Sign Reading Time Taken Comments Blood Pressure 110/68 10/09/2017 11:57 AM RESOLUTION EXPERT Pulse 69 10/09/2017 11:57 AM RESOLUTION EXPERT Temperature 36.9 C (98.5 F) 10/09/2017 11:57 AM RESOLUTION EXPERT Respiratory Rate 16 10/09/2017 11:57 AM RESOLUTION EXPERT Oxygen Saturation 95% 10/09/2017 11:57 AM RESOLUTION EXPERT Inhaled Oxygen Concentration - - Weight 69.9 kg (154 lb) 10/09/2017 11:57 AM RESOLUTION EXPERT Height 152.4 cm (5') 10/09/2017 11:57 AM RESOLUTION EXPERT Body Mass Index 30.08 10/09/2017 11:57 AM RESOLUTION EXPERT Plan of Treatment Health Maintenance Due Date Last Done Comments COLOGUARD (AGES 45-75) - COL ON CA SCREENING 1960 COLON MONITORING 1960 COLONOSCOPY - COLON CA SCREENING 1960 CT COLONOGRAPHY - COLON CA SCREENING 1960 Colorectal Cancer Screening 1960 FIT - COLON CA SCREENING 1960 FLEX SIG - COLON CA SCREENING 1960 LIPID TESTING 1960 MAMMOGRAM 1960 PAP SMEAR 1960 HIV SCREENING 1975 HEPATITIS C SCREENING 09/27/1978 DTAP/TDAP/TD VACCINES (1 - Tdap) 1979 PNEUMOCOCCAL VACCINE (1 of 2 - PCV) 1979 PNEUMOCOCCAL VACCINE 50+ (1 of 1 - PCV) 2010 ZOSTER VACCINE (1 of 2) 2010 SCREENING FOR DIABETES 10/09/2017 COVID-19 VACCINE (1 - 2023-2 5 season) 2024 DEPRESSION SCREENING 10/22/2024 INFLUENZA VACCINE (Season Ended) 2025 Respiratory Syncytial Virus (RSV) Vaccine Pt: or over 60 yrs (1 - 1-dose 75+ series) 2035 HEPATITIS B VACCINE Aged Out No longe r eligible based on patient's age to complete this topic HIB VACCINE Aged Out No longer eligi ble based on patient's age to complete this topic HPV VACCINE Aged Out No longer eligi ble based on patient's age to complete this topic MENINGOCOCCAL (Group B) VACC INE SHARED DECISION-MAKING Aged Out No longer eligibl e based on patient's age to complete this topic MENINGOCOCCAL GROUPS A/C/Y/W VACCINE Aged Out No longer eligible b ased on patient's age to complete this topic
--- OUTSIDE RECORDS SUMMARY | 2025-02-05 11:20 | XMS_ITS | Clinical Summary ---
Author Organization [facility] Address [address] [place] [address] Care Team Providers Care Smoking Pipe Mounter Name Role Phone Unavailable Primary Care Provider Unavailabl e Social History Tobacco Use Types Packs/Day Years Used Date Smoking Tobacco: Never Assessed Comments Unknown Sex and Gender Information Value Date Recorded Sex Assigned at Not on file Legal Sex Female 9:09 PM CDT Gender Identity Not on file Sexual Orientation Not on file Last Filed Vital Signs Vital Sign Reading Time Taken Comments Blood Pressure 108/82 06/05/2016 11:31 AM CDT Pulse 85 06/05/2016 11:31 AM CDT Temperature - - Respiratory Rate - - Oxygen Saturation - - Inhaled Oxygen Concentration - - Weight 70.3 kg (155 lb) 06/05/2016 11:31 AM CDT Height 154.9 cm (5' 1 ) 06/05/2016 11:31 AM CDT Body Mass Index 29.29 06/05/2016 11:31 AM CDT Plan of Treatment Health Maintenance Due Date Last Done Comments Cervical Cancer Screening Pa p Smear (Age 30 to 64) Every 3 Years 1960 Colorectal Cancer Screening Colonoscopy (10 Years) 1960 Annual Physical 1963 Hepatitis C 1978 Cervical Cancer Screening Pa p with HPV Testing (Age 30 to 64) Every 5 Years 1990 Cervical Cancer Screening with HPV 1990 Mammogram Screening 2000 Zoster Vaccines (1 of 2) 2010 COVID-19 Vaccine ( - 2023-2 5 season) 2024 DTaP, Tdap and Td Vaccines ( 2 - Td or Tdap) 12/08/2025 12/08/2015 RSV Immunization or 60+ Years (1 - 1-dose 75+ series) 2035 Meningococcal B Vaccine Aged Out No l onger eligible based on patient's age to complete this topic Meningococcal Vaccine Aged Out No mary shahida eligible based on patient's age to complete this topic Pneumococcal Vaccine: Pediat rics (0 to 5 Years) and At-Risk Patients (6 to 49 Years) Aged Out No longer eligi ble based on patient's age to complete this topic RSV Immunizations Under 20 Months Aged Out No longer eligible based on patient's age to complete this topic
== END 2025-02-05 10:31 | disposition home or self-care (01) ==
PROVIDERS: PCP Nurse Practitioner Family; Visit Provider Anesthesiology
DX: Z01.818 Encounter for other preprocedural examination (principal); Z72.0 Tobacco use
CPT/HCPCS: 93005

== ENCOUNTER 2025-02-09 00:02 | Day surgery (SDC) | payer OTHER, SELFPAY ==
[2025-02-04 14:51] VITALS: BMI 22.4
--- NOTE | 2025-02-04 15:37 | PC.NURSE ---
Addendum entered by Rimma Ramirez RN 02/04/25 15:46: CLEAR LIQ UNTIL 0700AM. PT AWARE. TYPO ERROR BY DOCUMENTING RN Addendum entered by Rimma Ramirez RN 02/04/25 15:45: CORRECTION: ARRIVE AT 0800AM SURGERY TIME AT 1000AM. PT IS AWARE OF CORRECT TIMES; TYPO ERROR BY DOCUMENTING RN Original Note: Report to the Outpatient Waiting Room, entrance under the green pavilion located off [facility], at time _10:00AM on date __Sunday02/09/25 . Planned Procedure Time: _12:00PM .? Time changes happen often and if your time is changed the preop area will call you the afternoon before. - You and your visitor will be asked to self-screen and do not enter if you have any COVID symptoms. Please call surgeon if you need to reschedule. - A mask is optional within the hospital at this time. Patients may have clear liquids (water, carbonated beverages, clear teas, apple juice) until 3 hours prior to surgery with a maximum of 20 ounces (9:00am) - No food from midnight until time of surgery and no smoking, or chewing tobacco (or any form of nicotine). No chewing gum, candy or mints. Take only the following medications with a SIP of water on the morning of surgery: ___buspirone, venlafaxine, albuterol inhaler DO NOT STOP ANY OF YOUR OTHER PRESCRIPTION MEDICATIONS PRIOR TO SURGERY EXCEPT THE FOLLOWING Hold all vitamins and supplements for 3 days per anesthesiologist. Medications to discontinue per physician ___Call Dr. Jimenez BRITTON re: when to stop diclofenac and naproxen prior to surgery Date to take last dose Please no make-up, nail filipino, hairspray, perfume, deodorant, or body powder the day of surgery.? No jewelry (including any body piercings) or valuables the day of surgery, leave them at home.? Please take a shower or bath the night before, or the morning of, surgery with an antibacterial soap.? Wear comfortable, loose fitting clothing.? - Jewelry must be removed prior to entering the operating room.? Rings and piercings that are not removed may be cut off. - The hospital will not accept responsibility for valuables.? - Please leave all valuables, including medications, at home the day of surgery. If you are going home after surgery, a licensed line haul truck driver must drive you home.? - NO public transportation without another adult if you receive anesthesia. - We recommend that an adult stay with you for 24 hours following discharge. - We also recommend that you do not drive, make important decision, drink alcoholic beverages, or take any drugs that were not prescribed by your health care provider for at least 24 hours after your discharge time. Follow any additional instructions given to you from your surgeon. Telephone instructions given to _PAM and asked if any additional questions and then verbalized understanding. Patient advised to call surgeon office or pre surgery nurse liaison [phone] if any additional questions.
--- NOTE | 2025-02-05 06:48 | P.HP_ITS ---
H&P: HPI History of Present Illness Date/Time: 02/05/25 06:48 Chief Complaint: Patient has carpal tunnel syndrome left. She has been unresponsive to conservative treatment like to consider surgical release at this time. Review of Systems Musculoskeletal: Musculoskeletal: Reports arthralgias, Reports joint swelling and Reports stiffness Neurologic: Reports numbness PMFSH Past Medical History Medical History Abnormal Pap smear of cervix 2003--endometrial cells Tubal without intrauterine (~1994) tube removed Emphysema/COPD Hypertension Acid reflux Depression COPD (chronic obstructive pulmonary disease) Arthritis Anxiety Surgical History Surgical History History of shoulder surgery bilateral History of breast biopsy (~2006) right breast biopsy--benign History of bilateral breast reduction surgery (~2001) History of tonsillectomy and adenoidectomy (~1964) History of tubal ligation (~1991) History of carpal tunnel surgery (~2002) History of dilation and curettage 09/05/05 hscope d&c--irregular vaginal bleeding, benign 03/12/07 hscope d&c--menorrhagia, benign History of cholecystectomy (~11/02/97) S/P excision of lipoma (~05/20/97) Family History Family History Mother Hypertension CKD (chronic kidney disease) Breast cancer Abdominal aneurysm Father Cerebrovascular accident Sibling , Lupus CKD (chronic kidney disease) Social History Social History (Updated 01/15/25 @ 10:00 by Debbie Najera [facility]) Smoking packs per day: 1 Smoking cigarettes per day: 20.0 Years smoked: 45 Smoking pack-years: 45.00 Smoking status: Current every day smoker Tobacco type: cigarettes Second hand tobacco smoke exposure: Yes Alcohol intake: current Alcohol use details: rarely Substance use: current Substance use type: marijuana Other substance usage details: smoke at night Last use: 02/02/25 Do You Feel Safe in your Home?: Yes Lack of Transportation: No Lack of Food: Never True Current Housing: I Have Housing Concerned About Future Housing: No Difficulty Paying Gas/Electric Bills: No Difficulty Paying for Meds: No Currently Unemployed: No Education: High School Diploma/GED Difficulty w/ Childcare or Family Care: No Living arrangements: with family Occupation/Education: occupation 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 Gender identity (if verbalized by the patient): Female Spiritual care concerns: No Meds Home Medications and Allergies Home Medications ?Medication ?Instructions ?Recorded ?Confirmed ?Type albuterol sulfate 90 mcg/actuation 1 puff inhalation Q4H PRN 03/20/24 02/04/25 History aerosol inhaler shortness of breath or wheezing buspirone 5 mg tablet 5 mg PO BID 03/20/24 02/04/25 History venlafaxine 225 mg tablet,extended 225 mg PO DAILY 03/20/24 02/04/25 History release 24 hr naproxen 500 mg tablet 500 mg PO BID 01/15/25 02/04/25 History omeprazole 40 mg capsule,delayed 40 mg PO DAILY 01/15/25 02/04/25 History release diclofenac sodium 75 mg 75 mg PO BID #60 tabs 01/22/25 02/04/25 Rx tablet,delayed release Allergies Allergy/AdvReac Type Severity Reaction Status Date / Time Cephalosporins Allergy Severe Anaphylaxis Verified 02/04/25 15:34 Quinolones Allergy Severe Anaphylaxis Verified 02/04/25 15:34 CEPHALEXIN (Generic Allergy) Allergy Severe Y Uncoded 02/04/25 15:34 AVALOX Allergy Mild TACHYCARDIA Uncoded 02/04/25 15:34 Exam Narrative: Patient has numbness and tingling in the medial nerve a bit innervated fingers. She has a positive Phalen's and carpal tunnel compression test. She has mild thenar wasting. She has decreased sensation in the hand. Eyes: General: appearance normal, both eyes and all related structures Neck: Neck: supple Resp: Effort & Inspection: normal respiratory effort Cardio: Rate: regular rate Rhythm: regular rhythm Assessment and Plan Assessment and plan (1) Carpal tunnel syndrome of left wrist: Code(s): G56.02 - Carpal tunnel syndrome, left upper limb Status: Acute Assessment and Plan: Patient has carpal tunnel syndrome left hand. She has failed conservative treatment. She would like to consider surgical release. I discussed risks, benefits, limitations, and alternatives of the patient in detail. Will proceed per her request. All of her questions were answered.
--- OUTSIDE RECORDS SUMMARY | 2025-02-09 00:04 | XMS_ITS | Clinical Summary ---
Author Organization [facility] Address [address] [place] [address] Care Team Providers Care Display Designer Name Role Phone Unavailable Primary Care Provider [...] Screening with HPV 1990 Mammogram Screening 2000 Pneumococcal Vaccine: 50+ Ye ars (1 of 1 - PCV) 2010 Zoster Vaccines (1 of 2) 2010 COVID-19 [...]
--- OUTSIDE RECORDS SUMMARY | 2025-02-09 00:04 | XMS_ITS | Clinical Summary ---
Author Organization [address] Address [address] [place] [id number] Care Team Providers Care Artist Color Separation Name Role Phone Yolette Knight NP Primary Care Provider [phone] Allergies Active Allergy Reactions Criticality Noted Date [...] (04/22/2020): Added automatically from request for surgery [id number] Assessment & Plan (07/12/2020 11:36 AM CDT): [...] on file Legal Sex Female 6:47 AM EDITOR MAGAZINE Gender Identity Not on file Sexual Orientation [...] Advance Directives For more information, please contact: [phone] * Full Code (Latest Code Status on File) Date Activated Date Inactivated Comments 05/10/2020 12:10 PM 05/10/2020 6:32 PM * Full Code Date Activated Date Inactivated Comments 05/10/2020 12:10 PM 05/10/2020 12:10 PM Care Teams Artist Color Separation Relationship Specialty Start Date End Date Yolette Knight NP [address] [place] [address] PCP - General 05/05/20
--- OUTSIDE RECORDS SUMMARY | 2025-02-09 00:05 | XMS_ITS | Referral Summary ---
Author Organization [address] Address [address] [place] [id number] Care Team Providers Care Blueprint Duplicator Name Role Phone Yolette Knight NP Primary Care Provider +[phone] Allergies Active Allergy Reactions Criticality Noted Date [...] (04/22/2020): Added automatically from request for surgery [id number] Assessment & Plan (07/12/2020 11:36 AM CDT): [...] on file Legal Sex Female 6:47 AM TILE SPRAYER Gender Identity Not on file Sexual Orientation [...] Advance Directives For more information, please contact: [phone] * Full Code (Latest Code Status on File) Date Activated Date Inactivated Comments 05/10/2020 12:10 PM 05/10/2020 6:32 PM * Full Code Date Activated Date Inactivated Comments 05/10/2020 12:10 PM 05/10/2020 12:10 PM Care Teams Blueprint Duplicator Relationship Specialty Start Date End Date Yolette Knight NP [address] [place] [address] PCP - General 05/05/20
--- OUTSIDE RECORDS SUMMARY | 2025-02-09 00:05 | XMS_ITS | Clinical Summary ---
Author Organization [email or web address] Address [facility] [address] Care Team Providers Care Driller Machine Name Role Phone Unavailable Primary Care Provider Unavailabl e Source Comments [facility],non-owned Affiliates and Associated Physician Practices is amultiple site organization consisting of ambulatory clinics and hospital sitesin [place], [place], [place] and [place]. This disclosure is being madepursuant to the Care Everywhere program and may not contain all information available regarding this patient. Last updated 18.[email or web address] Allergies Active Allergy Reactions Criticality Noted Date [...] on file Legal Sex Female 12:02 PM CREDIT PROFESSIONAL Gender Identity Not on file Sexual Orientation Not on file Last Filed Vital Signs Vital Sign Reading Time Taken Comments Blood Pressure 110/68 10/09/2017 11:57 AM CREDIT PROFESSIONAL Pulse 69 10/09/2017 11:57 AM CREDIT PROFESSIONAL Temperature 36.9 C (98.5 F) 10/09/2017 11:57 AM CREDIT PROFESSIONAL Respiratory Rate 16 10/09/2017 11:57 AM CREDIT PROFESSIONAL Oxygen Saturation 95% 10/09/2017 11:57 AM CREDIT PROFESSIONAL Inhaled Oxygen Concentration - - Weight 69.9 kg (154 lb) 10/09/2017 11:57 AM CREDIT PROFESSIONAL Height 152.4 cm (5') 10/09/2017 11:57 AM CREDIT PROFESSIONAL Body Mass Index 30.08 10/09/2017 11:57 AM CREDIT PROFESSIONAL Plan of Treatment Health Maintenance Due Date Last Done Comments COLOGUARD (AGES 45-75) - COL ON CA SCREENING 1960 COLON MONITORING 1960 COLONOSCOPY - COLON CA SCREENING 1960 CT COLONOGRAPHY - COLON CA SCREENING 1960 Colorectal Cancer Screening 1960 FIT - COLON CA SCREENING 1960 FLEX SIG - COLON CA SCREENING 1960 LIPID TESTING 1960 MAMMOGRAM 1960 HIV SCREENING 1975 HEPATITIS C SCREENING 09/27/1978 DTAP/TDAP/TD VACCINES (1 - Tdap) 1979 PNEUMOCOCCAL VACCINE 50+ (1 of 1 - PCV) 2010 ZOSTER VACCINE (1 of 2) 2010 SCREENING FOR DIABETES 10/09/2017 COVID-19 VACCINE ( - 2023-2 5 season) 2024 DEPRESSION SCREENING [...]
[2025-02-09] MEDS: LIDOCAINE 1% LOCAL INJ 10 ML VIAL INFILTRATE (08:39)
[2025-02-09 08:40] VITALS: BP 148/66; PULSE 60; RESP 16; TEMP 36.3; O2SAT 99
[2025-02-09] MEDS: ACETAMINOPHEN 500 MG TABLET 1000 MG PO (08:50)
[2025-02-09] MEDS: LACTATED RINGERS 1,000 ML 30 ML IV CONT (09:05)
[2025-02-09] MEDS: KETOROLAC 15 MG/ML VIAL (*BKC) IV PUSH (09:08)
--- NOTE | 2025-02-09 09:32 | WPDHPUPDATE1 ---
History and Physical Update Update Date/Time: 02/09/25 09:32 History and Physical has been reviewed, including an updated exam of the patient. There are NO changes in the patient's condition. Risks, benefits, and alternatives have been discussed and questions answered. Patient agrees to proceed with procedure.
--- NOTE | 2025-02-09 09:39 | WPDANESEPPF ---
Anes - Initial Pre Proc Eval Procedure: Operation Date: 02/09/25 10:30 Proposed Procedures p Left Carpal Tunnel Release - Maik Jimenez MD Date/Time: 02/09/25 09:39 Surgeon: Maik Jimenez MD Pre Op Diagnosis: left carpal tunnel syndrome Patient Data Age: 64 Gender: F Height: 1.52 m Weight: 52.9 kg Last Vital Signs Temp 36.3 C L 02/09/25 08:40 Pulse 60 02/09/25 08:40 Resp 16 02/09/25 08:40 BP 148/66 H 02/09/25 08:40 Pulse Ox 99 02/09/25 08:40 O2 Del Method Room Air 02/09/25 08:40 Allergies Allergy/AdvReac Type Severity Reaction Status Date / Time Cephalosporins Allergy Severe Anaphylaxis Verified 02/09/25 08:47 Quinolones Allergy Severe Anaphylaxis Verified 02/09/25 08:47 moxifloxacin (From Avelox) Allergy Mild tachycardia Verified 02/09/25 08:47 Home Medications ?Medication ?Instructions ?Recorded ?Confirmed ?Type albuterol sulfate 90 mcg/actuation 1 puff inhalation Q4H PRN 03/20/24 02/04/25 History aerosol inhaler shortness of breath or wheezing buspirone 5 mg tablet 5 mg PO BID 03/20/24 02/09/25 History venlafaxine 225 mg tablet,extended 225 mg PO DAILY 03/20/24 02/09/25 History release 24 hr naproxen 500 mg tablet 500 mg PO BID 01/15/25 02/04/25 History omeprazole 40 mg capsule,delayed 40 mg PO DAILY 01/15/25 02/09/25 History release diclofenac sodium 75 mg 75 mg PO BID #60 tabs 01/22/25 02/09/25 Rx tablet,delayed release Patient hx anesthesia problems: none Family hx anesthesia problems: none Results Review: All pre-operative results and documents have been reviewed as part of the pre-operative evaluation. [facility] Past Medical History Medical History Abnormal Pap smear of cervix 2003--endometrial cells Tubal without intrauterine (~1994) tube removed Emphysema/COPD Hypertension Acid reflux Depression COPD (chronic obstructive pulmonary disease) Arthritis Anxiety Surgical History Surgical History History of shoulder surgery bilateral History of breast biopsy (~2006) right breast biopsy--benign History of bilateral breast reduction surgery (~2001) History of tonsillectomy and adenoidectomy (~1964) History of tubal ligation (~1991) History of carpal tunnel surgery (~2002) History of dilation and curettage 09/05/05 hscope d&c--irregular vaginal bleeding, benign 03/12/07 hscope d&c--menorrhagia, benign History of cholecystectomy (~11/02/97) S/P excision of lipoma (~05/20/97) Family History Family History Mother Hypertension CKD (chronic kidney disease) Breast cancer Abdominal aneurysm Father Cerebrovascular accident Sibling , Lupus CKD (chronic kidney disease) Social History Social History Smoking packs per day: 1 Smoking cigarettes per day: 20.0 Years smoked: 40 Smoking pack-years: 40.00 Smoking status: Current every day smoker Tobacco type: cigarettes Second hand tobacco smoke exposure: Yes Alcohol intake: current Alcohol use details: rarely Substance use: current Substance use type: marijuana Other substance usage details: smoke at night Last use: 02/02/25 Do You Feel Safe in your Home?: Yes Lack of Transportation: No Lack of Food: Never True Current Housing: I Have Housing Concerned About Future Housing: No Difficulty Paying Gas/Electric Bills: No Difficulty Paying for Meds: No Currently Unemployed: No Education: High School Diploma/GED Difficulty w/ Childcare or Family Care: No Living arrangements: with family Occupation/Education: occupation 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 Informed Consent: The patient's anesthetic plan and its attendant risks and benefits were discussed with the patient/family/POA. Questions were solicited and answers provided to the satisfaction of the patient/family/POA.
[2025-02-09] MEDS: CLINDAMYCIN 900 MG/D5W 50 ML 900 MG/50 ML PIGGYBACK 50 MG IVPB (10:22)
--- NOTE | 2025-02-09 10:43 | P.OP_ITS ---
Procedure Note - Detailed Date of Procedure 02/09/25 Pre-op Diagnosis LEFT carpal tunnel syndrome Post-op Diagnosis Same Procedure Performed Release left carpal tunnel Surgeon Maik Jimenez MD Boot And Saddle [employer]air Person A[facility]LIO Anesthesia General Indications Pain and Numbness Description of Procedure A general anesthetic was administered. After sterile prep and drape, I injected the area of intended incision with 10ml of 1% lidocaine. A longitudinal incision was made in line with the ulnar boarder of the third finger. Dissection carried down to the fascia, the fascia split and the carpal ligament identified. The carpal ligament was released and the flexor retinaculum was released as well. The nerve was noted to be red purple in color and in continuity. The wound was irrigated, hemostasis was obtained and closed with 3- 0 prolene. Estimated Blood Loss 5 Drains No Packing No Pathology None sent Complications No immediate complications Condition Stable Disposition Same day [facility] Billing Surgery - Charge Forward: Surgery Billing (14110 CTS release)
[2025-02-09 10:55] VITALS: BP 126/64; PULSE 74; RESP 14; O2SAT 99
[2025-02-09 11:25] VITALS: BP 134/70; PULSE 64; RESP 16
[2025-02-09 11:45] VITALS: BP 133/60; PULSE 57; RESP 16
[2025-02-09 12:00] VITALS: BP 129/60; PULSE 57; RESP 20
[2025-02-09 12:30] VITALS: BP 123/58; PULSE 58; RESP 20
== END 2025-02-09 12:50 | disposition home or self-care (01) ==
PROVIDERS: PCP Nurse Practitioner Family; Visit Provider Orthopaedic Surgery
PROC: (CPT 64721; principal; 2025-02-09 10:30)
DX: G56.02 Carpal tunnel syndrome, left upper limb (principal); F17.210 Nicotine dependence, cigarettes, uncomplicated
CPT/HCPCS: 64721; A9270; J1100; J1885; J2003; J2250; J2405; J2704; J3010; J7120

== ENCOUNTER 2025-03-24 13:10 | Emergency (ER) | payer OTHER, SELFPAY ==
--- NOTE | ~2025-03-24 | XR_ITS ---
EXAMINATION: XR knee RT 3V DATE: 03/24/2025 13:48 INDICATION: Right knee injury post fall TECHNIQUE: Anteroposterior, oblique and crosstable lateral views of the right knee were obtained COMPARISON: None. FINDINGS: Alignment is normal. No fracture. Joint spaces appear normal on nonweightbearing imaging. No joint e ffusion/layering lipohemarthrosis. Soft tissues are unremarkable. IMPRESSION: 1. Negative right knee radiographs. Reviewed, dictated and finalized at location A.
[2025-03-24 13:12] VITALS: BP 163/62; PULSE 79; RESP 16; TEMP 36.8; O2SAT 100
--- NOTE | 2025-03-24 14:24 | ED.GENADULT ---
HPI - General Adult General Chief complaint: Extremity Injury, Lower Stated complaint: right knee injury Time Seen by Provider: 03/24/25 13:40 History of Present Illness HPI narrative: [age] old female present to the emergency department for evaluation for right knee pain. Patient reports she slipped last night on a cat toy causing her to land on her right knee. Patient does report some pain with ambulation. Patient denies striking head denies loss consciousness. Patient denies any other pain or injury. Related Data Home Medications ?Medication ?Instructions ?Recorded ?Confirmed ?Last Taken ?Type albuterol sulfate 90 mcg/actuation 1 puff inhalation Q4H PRN 03/20/24 03/05/25 Unknown History aerosol inhaler shortness of breath or wheezing buspirone 5 mg tablet 5 mg PO BID 03/20/24 03/05/25 02/08/25 History venlafaxine 225 mg tablet,extended 225 mg PO DAILY 03/20/24 03/05/25 02/08/25 History release 24 hr omeprazole 40 mg capsule,delayed 40 mg PO DAILY 01/15/25 03/05/25 02/08/25 History release Allergies Allergy/AdvReac Type Severity Reaction Status Date / Time Cephalosporins Allergy Severe Anaphylaxis Verified 03/05/25 12:47 Quinolones Allergy Severe Anaphylaxis Verified 03/05/25 12:47 moxifloxacin (From Avelox) Allergy Mild tachycardia Verified 03/05/25 12:47 Review of Systems Review of Systems: All systems reviewed & are unremarkable except as noted in HPI and below PMFSH Past Medical History Medical History Abnormal Pap smear of cervix 2003--endometrial cells Tubal without intrauterine (~1994) tube removed Emphysema/COPD Hypertension Acid reflux Depression COPD (chronic obstructive pulmonary disease) Arthritis Anxiety Surgical History Surgical History History of shoulder surgery bilateral History of breast biopsy (~2006) right breast biopsy--benign History of bilateral breast reduction surgery (~2001) History of tonsillectomy and adenoidectomy (~1964) History of tubal ligation (~1991) History of carpal tunnel surgery (~2002) History of dilation and curettage 09/05/05 hscope d&c--irregular vaginal bleeding, benign 03/12/07 hscope d&c--menorrhagia, benign History of cholecystectomy (~11/02/97) S/P excision of lipoma (~05/20/97) Family History Family History Mother Hypertension CKD (chronic kidney disease) Breast cancer Abdominal aneurysm Father Cerebrovascular accident Sibling , Lupus CKD (chronic kidney disease) Social History Social History (Updated 03/05/25 @ 12:50 by Debbie Najera [facility]) Smoking packs per day: 1 Smoking cigarettes per day: 20.0 Years smoked: 40 Smoking pack-years: 40.00 Smoking status: Current every day smoker Tobacco type: cigarettes Second hand tobacco smoke exposure: Yes Alcohol intake: current Alcohol use details: rarely Substance use: current Substance use type: marijuana Other substance usage details: smoke at night Last use: 02/02/25 Current Housing: Decline to Answer Concerned About Future Housing: Decline to Answer Difficulty Paying Gas/Electric Bills: Decline to Answer Difficulty Paying for Meds: Decline to Answer Currently Unemployed: Decline to Answer Education: Decline to Answer Difficulty w/ Childcare or Family Care: Decline to Answer Living arrangements: with family Occupation/Education: occupation 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 HEAD: normocephalic, atraumatic. EYES: PERRLA/EOMI, conjunctivae clear. NOSE: Normal no drainage EARS:TMS clear with good light reflex. THROAT: Pharynx clear, no exudate. NECK: Supple. No adenopathy, no masses. RESPIRATORY: Airway patent, respirations nonlabored. Clear to auscultation bilaterally, no rales, rhonchi, wheezing. CARDIOVASCULAR: Regular rate and rhythm without murmurs rubs or gallops. ABDOMINAL: Soft, nontender, nondistended, normal bowel sounds MUSCULOSKELETAL: Medial right knee tenderness to palpation with no deformity. NEURO: Alert. Cranial nerves II through XII intact. Good gait. Good coordination SKIN: Warm, dry. Normal Color Course Vital Signs Vital signs: Vital Signs Temperature 98.3 F 03/24/25 13:12 Pulse Rate 79 03/24/25 13:12 Respiratory Rate 16 03/24/25 13:12 Blood Pressure 163/62 H 03/24/25 13:12 Pulse Oximetry 100 03/24/25 13:12 Oxygen Delivery Room Air 03/24/25 13:12 Temperature 98.3 F 03/24/25 13:12 Pulse Rate 79 03/24/25 13:12 Respiratory Rate 16 03/24/25 13:12 Blood Pressure 163/62 H 03/24/25 13:12 Pulse Oximetry 100 03/24/25 13:12 Oxygen Delivery Room Air 03/24/25 13:12 Medical Decision Making MDM Narrative Medical decision making narrative: 64-year-old female present to the emergency department for evaluation for right knee pain. X-rays were negative for acute fracture dislocation. Patient has no significant edema deformity of the right knee. Patient was provided Ronny wrap for comfort and patient was advised to limit weight-bearing a utilize a walker. Patient was also encouraged close follow-up with her primary care physician for additional outpatient follow-up. Differential Diagnosis Differential Diagnosis: Knee contusion, knee fracture, in knee effusion Vital Signs Vital Signs: Vital Signs Temperature 98.3 F 03/24/25 13:12 Pulse Rate 79 03/24/25 13:12 Respiratory Rate 16 03/24/25 13:12 Blood Pressure 163/62 H 03/24/25 13:12 Pulse Oximetry 100 03/24/25 13:12 Oxygen Delivery Room Air 03/24/25 13:12 Temperature 98.3 F 03/24/25 13:12 Pulse Rate 79 03/24/25 13:12 Respiratory Rate 16 03/24/25 13:12 Blood Pressure 163/62 H 03/24/25 13:12 Pulse Oximetry 100 03/24/25 13:12 Oxygen Delivery Room Air 03/24/25 13:12 Imaging Data Radiologist's impression: Impressions Knee X-Ray 03/24/25 14:03 IMPRESSION: 1. Negative right knee radiographs. Discharge Plan Discharge Clinical Impression: Contusion of knee, right Patient Disposition: Home Condition: Stable Instructions: Antibiotic Form, Knee Pain (ED) Additional Instructions: Home medications for pain control. Ronny wrap for comfort. Utilize a walker for limited weight-bearing. Have close follow-up with your primary care physician for additional outpatient testing. If you have any worsening symptoms please call or return to the emergency department. Patient Language: Lao Prescriptions: Ankur (STEVE Smith See Rx Instructions .Route Qty: 1 0RF Rx Instructions: As directed No Action venlafaxine 225 mg tablet extended release 24hr 225 mg PO DAILY buspirone 5 mg tablet 5 mg PO BID albuterol sulfate 90 mcg/actuation HFA aerosol inhaler 1 puff inhalation Q4H PRN (Reason: shortness of breath or wheezing) diclofenac sodium 75 mg tablet,delayed release (DR/EC) 75 mg PO BID Qty: 60 2RF omeprazole 40 mg capsule,delayed release(DR/EC) 40 mg PO DAILY diclofenac sodium 75 mg tablet,delayed release (DR/EC) See Rx Instructions .ROUTE .COMPLEX Qty: 60 1RF Dose Instruction: TAKE 1 TABLET BY MOUTH TWICE A DAY Rx Instructions: TAKE 1 TABLET BY MOUTH TWICE A DAY sulfamethoxazole-trimethoprim [Bactrim DS] 800-160 mg tablet 1 tablet PO Q12H Qty: 20 0RF Follow-up/Referrals: Knight,Yolette Diaz APN [Primary Care Provider] -
== END 2025-03-24 14:36 | disposition home or self-care (01) ==
PROVIDERS: Emergency Provider Emergency Medicine; PCP Nurse Practitioner Family
DX: S80.01XA Contusion of right knee, initial encounter (principal); W01.0XXA Fall on same level from slipping, tripping and stumbling without subsequent striking against object, initial encounter; F17.210 Nicotine dependence, cigarettes, uncomplicated; F12.90 Cannabis use, unspecified, uncomplicated
CPT/HCPCS: 73562; 99283